=== PATIENT | male | born 1995 | race African-American/Black ===

== ENCOUNTER 2024-06-29 23:02 | Emergency (ER) | payer MEDICAID ==
[~2024-06-29] VITALS: Ht 177.8 cm; Wt 80.0 kg
[2024-06-29 23:05] VITALS: BP 131/92; PULSE 98; RESP 16; TEMP 98.5; O2SAT 98
[2024-06-29] MEDS ORDERED: BACITRACIN ZINC OINT UDPKT TOP ONE (23:45)
[2024-06-29] MEDS ORDERED: LIDOCAINE HCL/EPINEPHRINE 1%-EPI 1:100,000 20ML VIAL INFIL ONE (23:45)
[2024-06-29] MEDS ORDERED: HYDROCODONE/ACETAMINOPHEN 10/325MG TABLET PO ONE (23:45)
[2024-06-29] MEDS ORDERED: TETANUS, DIPHTHERIA, PERTUSSIS VAC/PF 0.5ML (>10YR OLD) IM ONE (23:45)
== END 2024-06-30 04:05 | disposition left against medical advice (07) ==
LOC: ER 23:16
DX: S01.81XA Laceration without foreign body of other part of head, initial encounter (principal); Z88.0 Allergy status to penicillin; X58.XXXA Exposure to other specified factors, initial encounter; Y93.89 Activity, other specified; Y92.89 Other specified places as the place of occurrence of the external cause; Y99.8 Other external cause status
CPT/HCPCS: 12013; 99283